=== PATIENT | male | born 1970 | race Caucasian/White ===

== ENCOUNTER 2023-02-08 09:14 | Outpatient (CLI) | payer OTHER, SELFPAY | END 2023-02-08 09:15 | disposition home or self-care (01) | PROVIDERS: Visit Provider Family Medicine | DX: S89.92XA Unspecified injury of left lower leg, initial encounter (principal); S49.91XA Unspecified injury of right shoulder and upper arm, initial encounter; S99.911A Unspecified injury of right ankle, initial encounter; V58.0XXA Driver of pick-up truck or van injured in noncollision transport accident in nontraffic accident, initial encounter; Y92.410 Unspecified street and highway as the place of occurrence of the external cause | CPT/HCPCS: A0425; A0427 ==

== ENCOUNTER 2023-02-08 10:00 | Emergency (ER) | payer OTHER, SELFPAY ==
[2023-02-08] VITALS (10 sets, daily range): BP systolic 122–163; BP diastolic 75–91; PULSE 92–104; RESP 7–21; TEMP 36.9; O2SAT 88–98; BMI 30.1
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
[2023-02-08] MEDS: 0.9 % SODIUM CHLORIDE 1000 ml 1,000 ML IV ×2 (10:17→12:05)
[2023-02-08] MEDS: PROPOFOL 10 MG/ML INJ 175 MG IVP (10:21)
[2023-02-08] MEDS: fentaNYL 100 MCG/2 ML inj 50 MCG IVP (10:36)
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
--- NOTE | 2023-02-08 10:42 | ED.NURSE ---
Report given to EMS. Pt transferred over to EMS stretcher and transported via ground to [facility]. All belongings - phone, shoe, wallet. Clothing was cut off during initial assessment upon arrival.
--- NOTE | 2023-02-08 10:44 | ED.NURSE ---
contact son, Virgil PIMENTEL. Son aware [place] [facility] [place].
--- NOTE | 2023-02-08 10:44 | ED.NURSE ---
Son's phone number: [phone]
[2023-02-08 10:56] LABS: Chloride* 110 mmol/L (96-114); Potassium* 3.7 mmol/L (3.6-5.1); Sodium* 139 mmol/L (135-149)
[2023-02-08 10:58] LABS: Creatinine* 0.9 mg/dL (0.5-1.5); Estimated Glomerular Filt Rate 102 ml/min
[2023-02-08 10:59] LABS: Anion Gap 12 mEq/L (7-15); Blood Urea Nitrogen* 9 mg/dL (7-30); Calcium* 8.2 mg/dL (8.4-10.6); Carbon Dioxide* 17 mmol/L (20-32); Glucose* 197 mg/dL (60-115)
[2023-02-08 11:00] LABS: Ethanol* < 0.01 % (0.01-0.03)
[2023-02-08 11:10] LABS: Basophils Absolute Auto 0.05 K/uL (0.00-0.30); Basophils Percent Auto 0.7 % (0.0-3.0); Eosinophils Percent Auto 1.3 % (0.0-7.0); Hematocrit 43.9 % (37.0-53.0); Hemoglobin* 14.3 gm/dL (13.5-17.5); Immature Granulocytes Pct Auto 1.3 %; Lymphocytes Percent Auto 18.9 % (20-44); Mean Corpuscular HGB Conc 33 gm/dL (32-36); Mean Corpuscular Hemoglobin 29 pg (26-34); Mean Corpuscular Volume 89 fL (80-100); Monocytes Percent Auto 6.1 % (0.0-11.0); Neutrophils Absolute Auto 5.44 K/uL (1.7-7.0); Neutrophils Percent Auto 71.7 % (42.0-72.0); Platelet Count* 221 K/uL (140-440); RDW Coefficient of Variation % 13.3 % (11.5-15.5); Red Blood Count 4.92 m/uL (4.30-5.90); White Blood Count* 7.58 K/uL (4.50-11.00)
[2023-02-08 11:11] LABS: Slide Review Reflex No
--- NOTE | 2023-02-08 11:20 | ED.NURSE ---
Report given to [facility] RN.
[2023-02-08] MEDS: fentaNYL 100 MCG/2 ML inj IVP (12:03)
== END 2023-02-08 10:57 | disposition short-term general hospital (02) ==
PROVIDERS: Emergency Provider Family Medicine
DX: S72.402A Unspecified fracture of lower end of left femur, initial encounter for closed fracture (principal); V49.9XXA Car occupant (driver) (passenger) injured in unspecified traffic accident, initial encounter
CPT/HCPCS: 27510; 36415; 71045; 72170; 73552; 73600; 80048; 82077; 85025; 96361; 96374; 96376; 99156; 99285; 99291; G0390; J2704; J3010; J7030

== ENCOUNTER 2023-02-08 10:37 | Outpatient (CLI) | payer OTHER, SELFPAY | END 2023-02-08 10:38 | disposition home or self-care (01) | LOC: AMB 03-06 10:49 | PROVIDERS: Visit Provider Family Medicine | DX: S72.92XS Unspecified fracture of left femur, sequela (principal) | CPT/HCPCS: A0425; A0427 ==